=== PATIENT | female | born 1965 | race Caucasian/White ===

== ENCOUNTER 2017-03-09 13:35 | Emergency (ER) | payer OTHER ==
[~2017-03-09] VITALS: Ht 177.8 cm; Wt 136.8 kg
[~2017-03-09 13:35] MED LIST: CHOL10008 PO; CYA1000I IM; DULO60CA42 PO; FURO-129 PO; HYDR-4003 PO; IBUP-1827 PO; LISI10TA PO; MULT-1018 PO; PANT40TA3 PO; POTA10TA12 PO; TIZA4CAP8 PO
[2017-03-09 13:41] VITALS: BP 180/98; PULSE 74; RESP 12; O2SAT 99
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
== END 2017-03-09 18:43 | disposition home or self-care (01) ==
LOC: SED 13:35
DX: S16.1XXA Strain of muscle, fascia and tendon at neck level, initial encounter (principal); S60.221A Contusion of right hand, initial encounter; Y04.1XXA Assault by human bite, initial encounter; W01.0XXA Fall on same level from slipping, tripping and stumbling without subsequent striking against object, initial encounter; W23.0XXA Caught, crushed, jammed, or pinched between moving objects, initial encounter; Y93.89 Activity, other specified; Y99.8 Other external cause status; Y92.019 Unspecified place in single-family (private) house as the place of occurrence of the external cause; I10 Essential (primary) hypertension; Z90.710 Acquired absence of both cervix and uterus; Z98.84 Bariatric surgery status; Z88.5 Allergy status to narcotic agent; Z88.2 Allergy status to sulfonamides; Z88.6 Allergy status to analgesic agent